=== PATIENT | female | born 1990 | race Caucasian/White ===

== ENCOUNTER 2017-04-30 11:40 | Emergency (ER) | END 2017-04-30 14:15 | disposition home or self-care (01) ==

== ENCOUNTER 2017-05-04 09:30 | Emergency (ER) | END 2017-05-04 13:46 | disposition home or self-care (01) ==

== ENCOUNTER 2017-05-07 07:40 | Emergency (ER) | END 2017-05-07 10:56 | disposition home or self-care (01) ==

== ENCOUNTER 2018-07-20 15:28 | Emergency (ER) | payer MEDICAID ==
[~2018-07-20] VITALS: Wt 94.8 kg
[~2018-07-20 15:28] MED LIST: ACET500C5 PO; PREN-39 PO
[2018-07-20] MEDS ORDERED: METOCLOPRAMIDE 10 MG INJ IV STA (16:45)
[2018-07-20] MEDS ORDERED: SOD CHLORIDE 0.9% 1,000 ML IV STA (16:45)
--- NOTE | 2018-07-20 18:24 | ERD ---
ER Documentation Chief Complaint Chief Complaint 11 WEAQUILES WITH VOMITING HPI 28-year-old female presents with a one-week history of vomiting, nonbilious nonbloody. Weeks by dates. She has had a couple episodes of diarrhea. She denies fevers, abdominal pain, vaginal bleeding. She is referred by OB for evaluation for IV fluids for hyperemesis. She does feel somewhat better after taking medication that her OB prescribed but was referred to the ER nonetheless. ROS All systems reviewed and are negative except as per history of present illness. Medications Home Meds Active Scripts Acetaminophen* (Tylophen*) 500 Mg Capsule, 1 CAP PO Q6H PRN for PAIN AND OR ELEVATED TEMP, #30 CAP Prov:WILBERT NEWMAN PA-C 05/07/17 Reported Medications Vits W-Ca,Fe,Fa(<1MG) ( Vitamins) 1 Tab Tablet, 1 TAB PO 02/17/14 Allergies Allergies: Coded Allergies: Penicillins (Unverified Allergy, Unknown, 02/17/14) PMhx/Soc Medical and Surgical Hx: pt denies Medical Hx, pt denies Surgical Hx Hx Alcohol Use: Yes (occ) Hx Substance Use: No Hx Tobacco Use: No FmHx Family History: No diabetes, No coronary disease, No other Physical Exam Vitals Vital Signs Date Temp Pulse Resp B/P (MAP) Pulse Ox O2 O2 Flow FiO2 Time Delivery Rate 07/20/18 99.6 101 18 157/67 99 15:36 (97) Physical Exam Const: No acute distress [id number]. Head: Atraumatic Eyes: Normal Conjunctiva ENT: Normal External Ears, Nose and Mouth. Moist mucous membranes. Neck: Full range of motion. No meningismus. Resp: Clear to auscultation bilaterally Cardio: Regular rate and rhythm, no murmurs Abd: Soft, non tender, non distended. Normal bowel sounds Skin: No petechiae or rashes Back: No midline or flank tenderness Ext: No cyanosis, or edema Neur: Awake and alert Psych: Normal Mood and Affect Result Diagram: 07/20/18 1704 07/20/18 1704 Results 24 hrs Laboratory Tests Test 07/20/18 17:04 White Blood Count 10.1 10^3/ul Red Blood Count 4.67 10^6/ul Hemoglobin 13.3 g/dl Hematocrit 39.0 % Mean Corpuscular Volume 83.5 fl Mean Corpuscular Hemoglobin 28.5 pg Mean Corpuscular Hemoglobin Concent 34.1 g/dl Red Cell Distribution Width 13.2 % Platelet Count 345 10^3/UL Mean Platelet Volume 9.7 fl Immature Granulocytes % 0.400 % Neutrophils % 74.5 % Lymphocytes % 18.2 % Monocytes % 6.2 % Eosinophils % 0.3 % Basophils % 0.4 % Nucleated Red Blood Cells % 0.0 /100WBC Immature Granulocytes # 0.040 10^3/ul Neutrophils # 7.6 10^3/ul Lymphocytes # 1.8 10^3/ul Monocytes # 0.6 10^3/ul Eosinophils # 0.0 10^3/ul Basophils # 0.0 10^3/ul Nucleated Red Blood Cells # 0.0 10^3/ul Urine Color DEVORA Urine Clarity CLOUDY Urine pH 6.0 Urine Specific [place] 1.026 Urine Ketones 2+ mg/dL Urine Nitrite NEGATIVE mg/dL Urine Bilirubin NEGATIVE mg/dL Urine Urobilinogen 2+ mg/dL Urine Leukocyte Esterase NEGATIVE Kervin/ul Urine Microscopic RBC 24 /HPF Urine Microscopic WBC 9 /HPF Urine Squamous Epithelial Cells MANY /HPF Urine Bacteria FEW /HPF Urine Mucus MODERATE /HPF Urine Hemoglobin NEGATIVE mg/dL Urine Glucose NEGATIVE mg/dL Urine Total Protein 1+ mg/dl Sodium Level 139 mmol/L Potassium Level 3.7 mmol/L Chloride Level 104 mmol/L Carbon Dioxide Level 24 mmol/L Anion Gap 11 Blood Urea Nitrogen 6 mg/dl Creatinine 0.52 mg/dl Est Glomerular Filtrat Rate mL/min > 60 mL/min Glucose Level 79 mg/dl Calcium Level 9.6 mg/dl Total Bilirubin 0.3 mg/dl Direct Bilirubin 0.00 mg/dl Indirect Bilirubin 0.3 mg/dl Aspartate Amino Transf (AST/SGOT) 19 IU/L Alanine Aminotransferase (ALT/SGPT) 20 IU/L Alkaline Phosphatase 77 IU/L Total Protein 7.7 g/dl Albumin 4.3 g/dl Globulin 3.40 g/dl Albumin/Globulin Ratio 1.26 Lipase 106 U/L Current Medications Medications Dose Sig/Armando Start Time Status Last (Trade) Ordered Route PRN Stop Time Admin Dose Reason Admin Sodium 1,000 ml @ Q1H STAT 07/20/18 DC 07/20/18 Chloride 1,000 mls/hr IV 16:45 07/20/18 17:10 17:44 10 mg ONCE STAT 07/20/18 DC 07/20/18 Metoclopramid IV 16:45 07/20/18 17:10 e HCl 16:46 (Reglan) Procedures/MDM She presents with a one-week history of vomiting. She is 11 weeks by dates. She has no signs of abdominal pain, vaginal bleeding. She was given 1 L normal saline IV. CBC and CMP showed no significant acute abnormalities. Urine is concentrated shows hemoglobin and leukocytes but with many epithelial cells spelled we will defer treatment for UTI given patient has no UTI symptoms or fever. Patient has hyperemesis. She currently has no signs to suggest complications of she has no abdominal pain, fevers, bleeding. She will be discharged home to continue medication as prescribed, follow-up with primary doctor or return for vomiting despite treatment, bleeding, pain, fevers, new worsening symptoms. Doubt appendicitis, and she has no signs of abdominal pain or additional concerning signs or symptoms but she should return as directed. Departure Diagnosis: Primary Impression: Vomiting Vomiting type: unspecified Vomiting Intractability: unspecified Nausea presence: unspecified Qualified Codes: R11.10 - Vomiting, unspecified Patient Instructions: Hyperemesis Gravidarum (Severe Morning Sickness) Additional Instructions: Continue medication as prescribed. Recheck for new or worsening symptoms-fever, bleeding, pain, or with primary care doctor. RAYA CALLE MD Jul 20, 2018 18:24
[2018-07-20 18:43] VITALS: BP 119/72; PULSE 75; RESP 18
== END 2018-07-20 18:46 | disposition home or self-care (01) ==
LOC: FTE 15:28
DX: O21.9 Vomiting of pregnancy, unspecified (principal); Z3A.11 11 weeks gestation of pregnancy
CPT/HCPCS: 36415; 80053; 81001; 83690; 85025; 96374; J2765; J7030; Z7502